=== PATIENT | male | born 1965 | race Caucasian/White ===

== ENCOUNTER 2021-11-06 20:42 | Emergency (ER) | payer MEDICAID, OTHER ==
[~2021-11-06] VITALS: Ht 170.2 cm; Wt 81.6 kg
[2021-11-06] MEDS ORDERED: CEPH500T PO (22:04)
--- NOTE | 2021-11-06 22:20 | NUR ---
Patient discharged to home in stable condition. Written and verbal after care instructions given. Patient verbalizes understanding of instruction.
[2021-11-06 22:21] VITALS: BP 150/97
--- NOTE | 2021-11-06 23:00 | NUR ---
Patient discharged to home in stable condition. Written and verbal after care instructions given. Patient verbalizes understanding of instruction.
== END 2021-11-06 23:00 | disposition home or self-care (01) ==
LOC: ER 20:49
DX: S61.412A Laceration without foreign body of left hand, initial encounter (principal); Z79.899 Other long term (current) drug therapy; W25.XXXA Contact with sharp glass, initial encounter; Y93.89 Activity, other specified; Y92.89 Other specified places as the place of occurrence of the external cause; Y99.8 Other external cause status
CPT/HCPCS: 99283; 12001; 73130; A6403

== ENCOUNTER 2021-11-14 21:34 | Emergency (ER) | payer MEDICAID ==
[~2021-11-14] VITALS: Ht 167.6 cm; Wt 77.1 kg
[~2021-11-14 21:34] MED LIST: CEPH500T PO
[2021-11-14 21:59] VITALS: BP 153/92
--- NOTE | 2021-11-14 21:59 | NUR ---
Patient discharged to home in stable condition. Written and verbal after care instructions given. Patient verbalizes understanding of instruction.
== END 2021-11-14 23:49 | disposition home or self-care (01) ==
LOC: ER 22:56
DX: S61.216D Laceration without foreign body of right little finger without damage to nail, subsequent encounter (principal); F17.210 Nicotine dependence, cigarettes, uncomplicated; X58.XXXD Exposure to other specified factors, subsequent encounter